=== PATIENT | male | born 1970 | race Hispanic/Latino ===

== ENCOUNTER 2017-06-06 15:15 | Inpatient (IN) | payer SELFPAY ==
--- NOTE | 2017-06-06 16:09 | RAD ---
EXAM: ONE VIEW CHEST 06/06/17 HISTORY: Congestion and general malaise times several days. COMPARISON: None. FINDINGS: Normal cardiac silhouette. The pulmonary vessels and hilum are normal. No mass. No consolidation. No pneumothorax or osseous abnormalities. IMPRESSION: No acute cardiopulmonary process. POS: [facility]
[2017-06-06 16:26] LABS: Hematocrit 52.1 % (42.0-52.0); Mean Platelet Volume 8.6 fL (7.4-10.4); Red Blood Cell (RBC) Count 4.96 mill/uL (4.70-6.10); White Blood Cell (WBC) Count 17.4 thou/uL (4.8-10.8)
[2017-06-06] MEDS ORDERED: Insulin Regular 300 UNITS/3 ML VIAL ONE (16:26)
[2017-06-06 16:27] LABS: Anion Gap 14 mmol/L (-14-95); T. Carbon Dioxide 6.4 mmol/L (1.0-85.0); vO2 Saturation-calc 58.2 % (0.0-100.0)
[2017-06-06 16:39] LABS: ALT (SGPT) 15 U/L (8-55); AST (SGOT) 11 U/L (5-34); Alkaline Phosphatase 103 U/L (40-150); BUN (Urea Nitrogen) 17 mg/dL (8.9-20.6); Bilirubin, Total 0.2 mg/dL (0.2-1.2); Calc. Creatinine Clearance 0 mL/min (70-130); Calcium 8.4 mg/dL (7.8-10.44); Chloride 104 mmol/L (98-107); Estimated GFR-MDRD 46; Globulin 3.5 g/dL (2.4-3.5); Lipase 18 U/L (8-78); Magnesium 2.4 mg/dL (1.6-2.6); Phosphorus 4.1 mg/dL (2.3-4.7); Protein, Total 8.2 g/dL (6.0-8.3)
[2017-06-06 16:42] LABS: Carbon Dioxide Less than 8 mmol/L (22-29)
[2017-06-06] MEDS ORDERED: Insulin Regular 100 units/100 ml in NS IVPB SCH (16:45)
[2017-06-06 17:02] LABS: #Basophils 0.1 thou/uL (0.0-0.2); #Eosinphils 0.1 thou/uL (0.0-0.7); #Neutrophils 15.3 thou/uL (1.40-6.50); %Basophils 0.3 % (0.0-1.0); %Eosinophils 0.4 % (0.0-10.0); %Lymphocytes 5.9 % (21.0-51.0); %Monocytes 5.8 % (0.0-10.0); Macrocytosis SLIGHT = 6-15 cells (100X) (0-5/hpf)
[2017-06-06 18:50] LABS: Bilirubin Negative (Negative); Blood, Urine Trace (Negative); Glucose, Urine (Dipstick) >=1000 mg/dL (Negative); Ketone, Urine 80 mg/dL (Negative); Nitrite Negative (Negative); Protein, Urine (Dipstick) 30 mg/dL (Neg-Trace); Urobilinogen 0.2 mg/dL (0.2-1.0)
[2017-06-06 18:55] LABS: Bacteria/HPF None Seen HPF (None Seen); Hyaline Casts/LPF 4-6 HYALINE CAST LPF (0-3 Hyaline); RBC/HPF 0-3 HPF (0-3); Squamous Epithelial 0-3 HPF (0-3); WBC/HPF None Seen HPF (0-3)
[2017-06-06] MEDS ORDERED: Ondansetron HCl/PF 4 MG/2 ML Vial IVP PRN (19:33)
[2017-06-06] MEDS ORDERED: CCU Electrolyte Replacement 1 EACH IVPB SCH (19:33)
[2017-06-06] MEDS ORDERED: Sodium Chloride 0.9% 1,000 ML IV PRN ×4 (19:33)
[2017-06-06] MEDS ORDERED: hydrALAZINE 20 MG/ML VIAL SLOW IVP PRN (19:33)
[2017-06-06] MEDS ORDERED: Dextrose 5 %-0.45 % NaCl 1,000 ML IV PRN (19:33)
[2017-06-06] MEDS ORDERED: NS 0.9% w/ 20 MEQ KCL 1,000 ML IV PRN ×2 (19:33)
[2017-06-06 19:43] VITALS: BMI 22.6
[2017-06-06] MEDS ORDERED: Potassium Chloride 40 MEQ in Premix Bag 1 BAG IVPB PRN (19:43)
[2017-06-06] MEDS ORDERED: CCU ELECTROLYTE REPLACEMENT PROTOCOL FS PRN (19:43)
[2017-06-06] MEDS ORDERED: Potassium Phosphate 9 MMOL in Sodium Chloride 0.9% 100 ML IVPB PRN (19:43)
[2017-06-06] MEDS ORDERED: Magnesium Oxide 400 MG TAB PO PRN ×2 (19:43)
[2017-06-06] MEDS ORDERED: Potassium Phosphate 12 MMOL in Sodium Chloride 0.9% 250 ML 250 ML IV PRN (19:43)
[2017-06-06] MEDS ORDERED: Potassium Phosphate 15 MMOL in Sodium Chloride 0.9% 250 ML 250 ML IV PRN (19:43)
[2017-06-06] MEDS ORDERED: Potassium Chloride 40 MEQ in Sodium Chloride 0.9% 250 ML 250 ML IVPB PRN (19:43)
[2017-06-06] MEDS ORDERED: Potassium Chloride 20 MEQ TAB PO PRN (19:43)
[2017-06-06] MEDS ORDERED: Magnesium 2 GM/NS 0.9% 100 ML 2 GM in Premix Bag 1 BAG IVPB PRN (19:43)
[2017-06-06 20:06] LABS: BUN (Urea Nitrogen) 14 mg/dL (8.9-20.6); Calc. Creatinine Clearance 63 mL/min (70-130); Calcium 7.8 mg/dL (7.8-10.44); Chloride 110 mmol/L (98-107); Estimated GFR-MDRD 64
[2017-06-06 20:08] LABS: Carbon Dioxide Less than 8 mmol/L (22-29)
[2017-06-06] MEDS ORDERED: Famotidine/PF 20 mg/2ml Vial SLOW IVP SCH (21:00)
[2017-06-06] MEDS: D5 1/2 NS w/20 mEq KCL 1,000 ML IV PRN (21:14)
--- NOTE | 2017-06-06 21:44 | HP ---
PRIMARY CARE PHYSICIAN: Dr. Bower. CHIEF COMPLAINT: Extremely weak, feeling thirsty, and dizzy. HISTORY OF PRESENT ILLNESS: Mr. Delcid is a 46-year-old gentleman who has a history of diabetes sami itus. He has been diabetic for about a year now. He states that in the past few days he has been fe eling extremely thirsty, weak, and dizzy and last night he got extremely thirsty and started having s ome pain in his back as well as both legs. He began having decrease in appetite and was drinking mor e and more water and then this morning, he was basically just trying to drink electrolytes only. He was feeling nauseated and extremely sick and for this reason, he came to the emergency room for evalu ation. In the ER, he was found to have a blood sugar of over 400. His carbon dioxide level was less than 8. His pH was 7.89 and an elevated anion gap and for this reason he is being admitted for diab etic ketoacidosis. The patient says that he has been compliant with his medications and which he fam es metformin and glyburide, but he does admit to being out of the glyburide for about a week. He, ot herwise, has no other complaints such as fever, chills, etc. REVIEW OF SYSTEMS: Constitutional: Again, no fevers, chills, no night sweats, no weight loss. He d oes admitted to poor appetite. HEENT: He has had no visual changes, no sore throat, but just dry mo uth. No neck pain, no adenopathy. Pulmonary: No hemoptysis, no cough, no wheezing. Cardiovascular : He denies any chest pain, no shortness of breath, no PND, no orthopnea. Gastrointestinal: He den ies any abdominal pain. He has had some nausea, but no vomiting, no change in bowels. Genitourinary : He complains of some urinary frequency, but no hematuria, no dysuria. Musculoskeletal: He has be en complaining of some pain and burning in his legs over the past few weeks. No leg swelling. Skin and Integument: No skin changes. No rash. Psychiatric: No symptoms of anxiety or depression. PAST MEDICAL HISTORY: Significant for diabetes mellitus. PAST SURGICAL HISTORY: He has had an appendectomy. ALLERGIES: No known drug allergies. SOCIAL HISTORY: He is . He is a nonsmoker. He occasionally drinks a beer. FAMILY HISTORY: Significant for diabetes mellitus. CURRENT MEDICATIONS: Include metformin 1000 mg twice a day, Lipitor 20 mg q. day and glyburide 5 mg daily. PHYSICAL EXAMINATION: GENERAL: He is ill appearing and appears a bit underweight. HEENT: His pupils are equal, round, and reactive. Extraocular muscles are intact. His sclerae anic teric. Throat: He has got dry mucous membranes, some mild erythema on the roof of his mouth. NECK: There is no adenopathy, no bruits. LUNGS: Clear. No wheezing, no rales. CARDIOVASCULAR: His heart rate is tachycardic. Regular rhythm. No murmurs, clicks, no rubs. ABDOMEN: Soft. He has got some mild diffuse tenderness, but there is no rebound or guarding. EXTREMITIES: There is no edema and he has got palpable dorsalis pedis pulses. There are no foot les ions. NEUROLOGIC: The exam is nonfocal. LABORATORY RESULTS: Sodium is 134, potassium 4.2, chloride is 104, CO2 was less than 8, BUN of 17, c reatinine 1.64. White blood cell count 17.4, hemoglobin 17, hematocrit is 52.1, platelet count is 33 8. ABG: pH was 6.89. Beta hydroxybutyrate is elevated at 13.01. ASSESSMENT AND PLAN: Mr. Delcid is a 46-year-old gentleman who is being admitted for diabetic ketoac idosis. The patient is very thin in appearance and I suspect that the patient has more of a type 1 b caterina habitus and type 2 unlikely to oral hypoglycemics are no longer adequate to control his diabetes. He will be admitted to the [facility], started on an insulin drip and will follow the diabetic ketoacidos is protocol. We will need to monitor his electrolytes as well as his phosphorus level and rehydrate him and I suspect that when he is discharged, he will require insulin along with his medication regim en for diabetes.
[2017-06-06 23:46] LABS: Anion Gap 20 mmol/L (10-20); BUN (Urea Nitrogen) 12 mg/dL (8.9-20.6); Calc. Creatinine Clearance 70 mL/min (70-130); Calcium 7.7 mg/dL (7.8-10.44); Chloride 112 mmol/L (98-107); Estimated GFR-MDRD 73
[2017-06-06 23:50] LABS: Carbon Dioxide 8 mmol/L (22-29)
[2017-06-07] MEDS: D5 1/2 NS w/20 mEq KCL 1,000 ML IV PRN ×2 (01:17→05:28)
[2017-06-07 05:09] LABS: Anion Gap 11 mmol/L (10-20); BUN (Urea Nitrogen) 10 mg/dL (8.9-20.6); Calc. Creatinine Clearance 75 mL/min (70-130); Calcium 8.1 mg/dL (7.8-10.44); Carbon Dioxide 16 mmol/L (22-29); Chloride 113 mmol/L (98-107); Estimated GFR-MDRD 78
[2017-06-07 06:09] LABS: #Lymphocytes 1.1 thou/uL (1.20-3.40); #Monocytes 0.7 thou/uL (0.11-0.59); #Neutrophils 5.4 thou/uL (1.40-6.50); %Basophils 0.5 % (0.0-1.0); %Eosinophils 0.3 % (0.0-10.0); %Lymphocytes 15.7 % (21.0-51.0); %Monocytes 9.2 % (0.0-10.0); Hematocrit 40.9 % (42.0-52.0); Mean Platelet Volume 7.5 fL (7.4-10.4); Red Blood Cell (RBC) Count 4.06 mill/uL (4.70-6.10); White Blood Cell (WBC) Count 7.2 thou/uL (4.8-10.8)
[2017-06-07] MEDS ORDERED: HumaLOG 300 UNITS/3 ML VIAL SC PRN ×3 (08:52→12:36)
[2017-06-07] MEDS ORDERED: Dextrose 5% in Water 1,000 ML IV PRN (08:52)
[2017-06-07] MEDS ORDERED: Dextrose 50% Abboject 50 ML SYRINGE SLOW IVP PRN (08:52)
--- NOTE | 2017-06-07 08:58 | PDOC.PN ---
- Subjective Encounter Start Date: 06/07/17 Encounter Start Time: 08:55 Mr. Delcid is feeling much better. He does not have any complaints. He denies abdominal pain or nausea or vomiting. He is being seen in follow-up of DKA. - Objective Resuscitation Status: Resuscitation Status FULL:Full Resuscitation MAR Reviewed: Yes Vital Signs & Weight: Vital Signs (12 hours) Temp Pulse Resp BP Pulse Ox 06/07/17 07:00 97.5 F L 86 16 95/65 99 06/07/17 04:00 98.5 F 80 16 94/62 99 06/07/17 00:00 98.5 F 85 16 96/64 99 I&O: 06/06/17 06/07/17 06/08/17 06:59 06:59 06:59 Intake Total 3392 Output Total 2790 Balance 602 Result Diagrams: 06/07/17 05:34 06/07/17 04:37 Additional Labs: Accuchecks 06/07/17 06/07/17 06/07/17 08:05 06:59 06:02 POC Glucose 100 108 168 H 06/07/17 06/07/17 06/07/17 05:14 04:04 03:01 POC Glucose 187 H 253 H 243 H 06/07/17 06/07/17 06/07/17 01:57 01:06 00:13 POC Glucose 220 H 293 H 248 H 06/06/17 06/06/17 06/06/17 23:00 22:12 21:05 POC Glucose 222 H 162 H 101 06/06/17 06/06/17 20:06 19:32 POC Glucose 164 H 183 H Phys Exam - Physical Examination HEENT: PERRLA Respiratory: no wheezing, no rales, no rhonchi, clear to auscultation bilateral Cardiovascular: RRR, no significant murmur, no rub Gastrointestinal: soft, non-tender, positive bowel sounds Musculoskeletal: no edema Dx/Plan (1) DKA, type 2 Code(s): E11.10 - TYPE 2 DIABETES MELLITUS WITH KETOACIDOSIS WITHOUT COMA Status: Acute - Plan * DKA- resolved. Will stop the insulin drip, and allow him to eat. Will place the patient on scheduled NPH ( due to cost) and continue Metformin. Glyburide will be discontinued * Replace Potassium * Hopefully home later today or in the AM.
[2017-06-07] MEDS ORDERED: FLU VACC QS2017-18 36 mo. & older 0.5 ML SYRINGE IM ONE (09:00)
[2017-06-07] MEDS ORDERED: NPH, Human Insulin Isophane 300 UNIT/3 ML VIAL SC SCH (09:00)
[2017-06-07] MEDS: Famotidine 20 MG TAB PO SCH ×2 (10:08→20:40)
[2017-06-07] MEDS: Enoxaparin Sodium 40 MG/0.4 ML SYRINGE SC SCH (10:08)
[2017-06-07 13:33] LABS: Anion Gap 16 mmol/L (10-20); BUN (Urea Nitrogen) 11 mg/dL (8.9-20.6); Calc. Creatinine Clearance 68 mL/min (70-130); Calcium 8.5 mg/dL (7.8-10.44); Carbon Dioxide 15 mmol/L (22-29); Chloride 106 mmol/L (98-107); Estimated GFR-MDRD 70
[2017-06-07] MEDS: Sodium Chloride 0.9% 1,000 ML IV SCH (14:28)
[2017-06-07] MEDS: metFORMIN 500 MG TAB PO SCH (16:57)
[2017-06-07] MEDS: NPH, Human Insulin Isophane 300 UNIT/3 ML VIAL SC SCH (16:57)
[2017-06-07] MEDS ORDERED: Acetaminophen 325 MG TAB PO PRN (23:37)
[2017-06-08] MEDS: NPH, Human Insulin Isophane 300 UNIT/3 ML VIAL SC SCH (07:43)
[2017-06-08] MEDS: Famotidine 20 MG TAB PO SCH (07:45)
[2017-06-08] MEDS: metFORMIN 500 MG TAB PO SCH (07:45)
[2017-06-08] MEDS: Sodium Chloride 0.9% 1,000 ML IV SCH (07:51)
[2017-06-08] MEDS: Enoxaparin Sodium 40 MG/0.4 ML SYRINGE SC SCH (07:51)
--- NOTE | 2017-06-08 09:53 | DIS ---
PRIMARY CARE PHYSICIAN: Jese Bower M.D. DATE OF ADMISSION: 06/06/2017 DATE OF DISCHARGE: 06/08/2017 DISCHARGE DISPOSITION: Home. PRIMARY DISCHARGE DIAGNOSES: 1. Diabetic ketoacidosis. 2. Type 2 diabetes, but insulin requiring. DISCHARGE MEDICATIONS: Inculde metformin 1000 mg twice daily as well as NPH Insulin 20 units twice a day and discontinue glyburide, but continue Lipitor 20 mg daily. CODE STATUS: FULL CODE. ALLERGIES: No known drug allergies. HOSPITAL COURSE: Mr. Delcid is a pleasant 46-year-old gentleman, who presented to the emergency room with complaints of generally not feeling well, excessive thirst and feeling weak. He was found to b e in DKA. He was admitted to the [facility], placed on an insulin drip and treated according to the DKA pr otocol. His DKA resolved and he was transitioned to insulin as it appears that he has more of the zohaib dy habitus of the type 1 diabetic and type 2, and likely will require insulin for proper control of h is diabetes. He was placed on NPH due to cost instead of Lantus or Levemir and also to continue the metformin, but discontinue glyburide to avoid hypoglycemia and he was instructed on how to use insuli n in the hospital and was subsequently discharged home and is to follow up with Dr. Bower in appr oximately 1-2 weeks.
[2017-06-08 11:40] VITALS: BP 99/68; TEMP 98.2
== END 2017-06-08 11:59 | disposition home or self-care (01) | DRG 639 ==
LOC: ERS 15:15 → IMCU/EMU 19:30
PROVIDERS: ADMIT Internal Medicine; ATTEND Internal Medicine
DX: E11.10 Type 2 diabetes mellitus with ketoacidosis without coma (principal); R63.6 Underweight; Z79.4 Long term (current) use of insulin; Z68.22 Body mass index [BMI] 22.0-22.9, adult
CPT/HCPCS: 36415; 36416; 71010; 80053; 81003; 81015; 82010; 82330; 82803; 83690; 83735; 84100; 85025; 96361; 96365; 96366; 96376; J1815; J3480; J7050